=== PATIENT | female | born 1990 | race African-American/Black ===

== ENCOUNTER 2018-11-27 11:46 | Inpatient (IN) | payer MEDICARE ==
[~2018-11-27] VITALS: Ht 175.3 cm; Wt 68.0 kg
[2018-11-27 11:58] VITALS: BP 154/75
--- NOTE | 2018-11-27 12:00 | NUR ---
ED Nurse Note: pt brouhg in by friend to the ED, c/o abd pain and vomiting . patient stated that she has insulin pump but it got . BS at the bedside is 332. friend at beside
[2018-11-27] MEDS ORDERED: Morphine Sulfate 4mg/ml Inj (IV/IM USE ONLY) IVP ONE (12:30)
[2018-11-27 12:43] LABS: HEMOGLOBIN 12.5 G/DL (12.0-16.0); MEAN CORPUSCULAR VOLUME 75 FL (80-99); PLATELET COUNT 193 K/UL (150-450); RED BLOOD COUNT 5.48 M/UL (4.20-5.40); RED CELL DISTRIBUTION WIDTH 13.1 % (11.6-14.8); WHITE BLOOD COUNT 13.4 K/UL (4.8-10.8)
[2018-11-27 12:56] LABS: ANION GAP 18 mmol/L (5-15); BLOOD UREA NITROGEN 21 mg/dL (7-18); CALCIUM 9.7 MG/DL (8.5-10.1); CARBON DIOXIDE 19 MMOL/L (21-32); CHLORIDE 100 MMOL/L (98-107); POTASSIUM 4.4 MMOL/L (3.5-5.1); SODIUM 137 MMOL/L (136-145)
[2018-11-27 13:00] LABS: ALANINE AMINOTRANSFERASE 30 U/L (12-78); ALBUMIN 4.1 G/DL (3.4-5.0); ALBUMIN/GLOBULIN RATIO 1.1 (1.0-2.7); ALKALINE PHOSPHATASE 90 U/L (46-116); ASPARTATE AMINO TRANSFERASE 40 U/L (15-37); BILIRUBIN,TOTAL 0.6 MG/DL (0.2-1.0)
[2018-11-27] MEDS ORDERED: Insulin Human Regular 100units/ml 3ml IV ONE (14:15)
[2018-11-27] MEDS ORDERED: Pantoprazole Inj IVP ONE (14:15)
[2018-11-27] MEDS ORDERED: Isovue-300 100ml vial INJ PRN (14:15)
[2018-11-27 15:29] LABS: APPEARANCE,URINE SLIGHTLY CLOUDY; BILIRUBIN, URINE NEGATIVE (NEGATIVE); COLOR,URINE PALE YELLOW; GLUCOSE, URINE (UA) 4+ (NEGATIVE); KETONES,URINE 4+ (NEGATIVE); LEUKOCYTE ESTERASE ,URINE NEGATIVE (NEGATIVE); NITRITE,URINE NEGATIVE (NEGATIVE); PH,URINE 5 (4.5-8.0); PROTEIN,URINE NEGATIVE (NEGATIVE); UROBILINOGEN,URINE NORMAL MG/DL (0.0-1.0)
--- NOTE | 2018-11-27 15:29 | Emergency Room Report ---
History of Present Illness General Chief Complaint: Abdominal Pain Source: Patient Present Illness HPI 28-year-old female presents ED for evaluation. Complaining of abdominal pain and vomiting since this morning. States she is a diabetic and ran out of her insulin. Moved here recently from ER does not have a PMD here. Pain is sharp, 7 out of 10, nonradiating. Notes blood in her vomit. Denies any diarrhea. Denies any fevers or chills. Denies chest pain or shortness of breath. No other aggravating relieving factors. Denies any other associated symptoms Allergies: Coded Allergies: No Known Allergies (Unverified , 11/27/18) Patient History Past Medical History: DM Past Surgical History: none Pertinent Family History: none Social History: Denies: smoking, alcohol use, drug use Now: No Immunizations: UTD Reviewed Nursing Documentation: PMH: Agreed; PSxH: Agreed Nursing Documentation-PMH Hx Diabetes: Yes Review of Systems All Other Systems: negative except mentioned in HPI Physical Exam Vital Signs Date Time Temp Pulse Resp B/P (MAP) Pulse Ox O2 Delivery O2 Flow Rate FiO2 11/27/18 11:53 97.0 75 18 154/75 95 Room Air Sp02 EP Interpretation: reviewed, normal General Appearance: alert, GCS 15, non-toxic, mild distress Head: normocephalic, atraumatic Eyes: bilateral eye normal inspection, bilateral eye PERRL ENT: hearing grossly normal, normal pharynx, no angioedema, normal voice Neck: full range of motion, supple/symm/no masses Respiratory: chest non-tender, lungs clear, normal breath sounds, speaking full sentences Cardiovascular #1: regular rate, rhythm, no edema Cardiovascular #2: 2+ carotid (R), 2+ carotid (L), 2+ radial (R), 2+ radial (L) , 2+ dorsalis pedis (R), 2+ dorsalis pedis (L) Gastrointestinal: normal bowel sounds, soft, non-distended, no guarding, no rebound, tenderness Rectal: deferred Genitourinary: normal inspection, no CVA tenderness Musculoskeletal: back normal, gait/station normal, normal range of motion, non- tender Neurologic: alert, oriented x3, responsive, motor strength/tone normal, sensory intact, speech normal Psychiatric: judgement/insight normal, memory normal, mood/affect normal, no suicidal/homicidal ideation Reflexes: 3+ bicep (R), 3+ bicep (L), 3+ tricep (R), 3+ tricep (L), 3+ knee (R) , 3+ knee (L) Skin: normal color, no rash, warm/dry, well hydrated Lymphatic: no adenopathy Medical Decision Making Diagnostic Impression: Primary Impression: Hyperglycemia Additional Impressions: Intractable vomiting Qualified Codes: R11.2 - Nausea with vomiting, unspecified Pyelonephritis ER Course Hospital Course 28 yo F presents with abd pain, vomiting, glucose high Differential diagnoses include: ETOH/drug ingestion, sepsis, DKA Clinical course Patient placed on stretcher. On manager cardiac. After initial history and physical I ordered labs, IV fluids, urine and chest Xray Labs-glucose greater than 300, anion gap mildly elevated, bicarbonate ok, UA grossly positive, ketones positive ABGs does not show acidosis. Unlikely DKA Patient continues to have pain. CT ordered CT shows heterogeneous in the in the right kidney distended bladder suggestive of pyelonephritis Insulin given, IV fluids given, antibiotics given Case discussed with Dr. Isbell and he agreed to accept the patient to his service for further care and support i. I feel this is a highly complex case requiring extensive working including EKG/Rhythm strip, Xray/CT/US, Blood/urine lab work, repeat exams while in ED, and administration of strong opiates/narcotics for pain control, admission to hospital or close patient follow up. diagnosis - hyperglycemia, intractable vomiting, pyelonephritis admitted to floor in serious condition Labs Test 11/27/18 12:07 11/27/18 12:40 11/27/18 13:04 11/27/18 15:17 White Blood Count 13.4 K/UL (4.8-10.8) Red Blood Count 5.48 M/UL (4.20-5.40) Hemoglobin 12.5 G/DL (12.0-16.0) Hematocrit 41.0 % (37.0-47.0) Mean Corpuscular Volume 75 FL (80-99) Mean Corpuscular Hemoglobin 22.8 PG (27.0-31.0) Mean Corpuscular Hemoglobin Concent 30.5 G/DL (32.0-36.0) Red Cell Distribution Width 13.1 % (11.6-14.8) Platelet Count 193 K/UL (150-450) Mean Platelet Volume 9.4 FL (6.5-10.1) Neutrophils (%) (Auto) % (45.0-75.0) Lymphocytes (%) (Auto) % (20.0-45.0) Monocytes (%) (Auto) % (1.0-10.0) Eosinophils (%) (Auto) % (0.0-3.0) Basophils (%) (Auto) % (0.0-2.0) Differential Total Cells Counted 100 Neutrophils % (Manual) 80 % (45-75) Lymphocytes % (Manual) 15 % (20-45) Monocytes % (Manual) 5 % (1-10) Eosinophils % (Manual) 0 % (0-3) Basophils % (Manual) 0 % (0-2) Band Neutrophils 0 % (0-8) Platelet Estimate Adequate Platelet Morphology Normal Hypochromasia 1+ Microcytosis 1+ Sodium Level 137 MMOL/L (136-145) Potassium Level 4.4 MMOL/L (3.5-5.1) Chloride Level 100 MMOL/L (98-107) Carbon Dioxide Level 19 MMOL/L (21-32) Anion Gap 18 mmol/L (5-15) Blood Urea Nitrogen 21 mg/dL (7-18) Creatinine 1.0 MG/DL (0.55-1.30) Estimat Glomerular Filtration Rate > 60 mL/min (>60) Glucose Level 360 MG/DL (74-106) Calcium Level 9.7 MG/DL (8.5-10.1) Magnesium Level 1.8 MG/DL (1.8-2.4) Total Bilirubin 0.6 MG/DL (0.2-1.0) Aspartate Amino Transf (AST/SGOT) 40 U/L (15-37) Alanine Aminotransferase (ALT/SGPT) 30 U/L (12-78) Alkaline Phosphatase 90 U/L (46-116) Total Protein 7.7 G/DL (6.4-8.2) Albumin 4.1 G/DL (3.4-5.0) Globulin 3.6 g/dL Albumin/Globulin Ratio 1.1 (1.0-2.7) Lipase 83 U/L (73-393) Human Chorionic Gonadotropin, Quant < 1 mIU/mL (1-6) Acetone Level Positive-small (NEGATIVE) Arterial Blood pH 7.306 (7.350-7.450) Arterial Blood Partial Pressure CO2 37.1 mmHg (35.0-45.0) Arterial Blood Partial Pressure O2 97.0 mmHg (75.0-100.0) Arterial Blood HCO3 18.1 mmol/L (22.0-26.0) Arterial Blood Oxygen Saturation 96.6 % (95-100) Arterial Blood Base Excess -7.5 (-2-2) Marcel Test Positive CT/MRI/US Diagnostic Results CT/MRI/US Diagnostic Results : Imaging Test Ordered: CT A/P Impression Equivocally slightly relatively decreased and heterogeneous opacification of the right kidney, if real could indicate pyelonephritis. Correlate urinalysis findings Distended bladder. There is a single intraluminal gas bubble. This could indicate recent instrumentation. However, if there is no history of such, is a possibility of emphysematous cystitis should be considered Last Vital Signs Date Time Temp Pulse Resp B/P (MAP) Pulse Ox O2 Delivery O2 Flow Rate FiO2 11/27/18 12:59 97.0 11/27/18 12:21 107 18 Room Air 11/27/18 11:58 154/75 95 Status: improved Disposition: ADMITTED INPATIENT Condition: Serious Molina Curtis MD Nov 27, 2018 15:29
--- NOTE | 2018-11-27 15:48 | Diagnostic Imaging Report ---
Clinical Indication: Abdominal pain and vomiting Technique: No oral contrast utilized, per emergency room physician request IV administration nonionic contrast. Venous phase spiral acquisition obtained through the abdomen and pelvis. Multiplanar reconstructions were generated. Total dose length product 803.37 mGycm. CTDIvol(s) 12.54,16.82 mGy. Dose reduction achieved using automated exposure control Comparison: none Findings: Lack of enteric contrast limits assessment of the GI tract. The appendix is not definitely identified, but no findings to suggest acute appendicitis are evident. The rectum is mildly distended with stool. No small bowel distention. No free or loculated intraperitoneal gas or fluid is evident. The duodenum, stomach, and distal esophagus are unremarkable. The liver, gallbladder, bile ducts, pancreas, spleen, adrenals and left kidney are unremarkable. There is equivocally slightly relatively decreased and slightly heterogeneous opacification of the right kidney. Subcentimeter low-attenuation lesion in the upper pole of the right kidney is noted. No renal or ureteral calculi, hydronephrosis, or hydroureter demonstrated. The bladder is considerably distended. A single gas bubble is seen within the bladder lumen. However, there is no wall thickening demonstrated. No pelvic mass or adenopathy. The uterus demonstrates a intrauterine device The included lung bases demonstrate on the highest cut a 4 mm nodule in the right lower lobe, possibly adjacent to the major fissure. The bones are unremarkable. Impression: Equivocally slightly relatively decreased and heterogeneous opacification of the right kidney, if real could indicate pyelonephritis. Correlate urinalysis findings Distended bladder. There is a single intraluminal gas bubble. This could indicate recent instrumentation. However, if there is no history of such, is a possibility of emphysematous cystitis should be considered No other acute abnormality Intrauterine device 4 mm right lower lobe lung nodule incompletely included. No further follow-up necessary if there is no significant smoking history or other risk factors for lung carcinoma. Recommend 6-12 month interim follow-up exam if there are significant risk factors Subcentimeter low-attenuation right renal lesion, too small to characterize, most likely benign simple cyst. No further follow-up necessary The CT scanner at [facility] is accredited by the [employer] and the scans are performed using protocols designed to limit radiation exposure to as low as reasonably achievable to attain images of sufficient resolution adequate for diagnostic evaluation.
[2018-11-27] MEDS ORDERED: cefTRIAXone 1 GM in NS 55 ML IVPB ONE (16:00)
--- NOTE | 2018-11-27 16:08 | NUR ---
ED Nurse Note: patient got CT at 1437, and indwelling wright was placed in 1508
--- NOTE | 2018-11-27 17:09 | NUR ---
ED Nurse Note: report given to Demetria BARRERA. friend at bedside
[2018-11-27 17:30] VITALS: BP 141/86
--- NOTE | 2018-11-27 17:30 | NUR ---
NURSE NOTES: ADMITTED A 28 YR OLD FEMALE WITH DX OF HYPERGLYCEMIA,INTRACTABLE VOMITING. AWAKE/ALERT. ADM CARE DONE SEE ASSESSMENT.
[2018-11-27] MEDS: NovoLOG Insulin Flexpen SUBQ SCH ×2 (18:52→21:07)
[2018-11-27] MEDS ORDERED: NOVOLOG100 UNIT/5 (19:00)
--- NOTE | 2018-11-27 19:00 | NUR ---
NURSE NOTES: RESTING IN BED. IN NO DISTRESS.
--- NOTE | 2018-11-27 19:35 | NUR ---
HAND-OFF: Report given to Rachael thorne.
[2018-11-27 20:00] VITALS: BP 138/82
--- NOTE | 2018-11-27 20:00 | NUR ---
NURSE NOTES: Report received from Sabas RN. Patient is observed in bed, awake, alert, oriented, and able to make needs known. IV site is asymptomatic, patent, and intact. IVF is running at a prescribed rate. Patient denies pain at this time. Bed is in lowest position with side rails up x2 and brakes are engaged. Encouraged patient to use call light when in need of assistance, patient verbalized understanding.
--- NOTE | 2018-11-27 21:45 | History and Physical Report ---
DATE OF ADMISSION: 11/27/2018 HISTORY: This is a young 28-year-old female, who came with hyperglycemia, intractable vomiting, and nausea and vomiting. The patient denies any fever or chills. PAST MEDICAL HISTORY: Diabetes. MEDICATIONS: See the list. ALLERGIES: NKA. FAMILY HISTORY: Noncontributory. SOCIAL HISTORY: The patient lives with the family. Denies any illegal drugs. PHYSICAL EXAMINATION: VITAL SIGNS: Her current blood pressure 154/75, pulse 107, respirations 18, and temp is 97. SKIN: Good skin turgor. Looks diaphoretic. HEENT: NAD. CHEST: Bilaterally few crackles. CARDIOVASCULAR: Regular rhythm. No gallop. No murmur. ABDOMEN: Soft. Mild tenderness. EXTREMITIES: CCE. NEUROLOGICAL: No focal deficit. LABORATORY EXAMINATION: White counts are 13,000 , hemoglobin 13, hematocrit 42, and platelets are 193,000. Chemistry panel, sodium 137, potassium 4.4, BUN 21, creatinine 1, and glucose 360. Her test is negative. Her urine is showing 2 to 4 rbc, moderate squamous cells, 4+ glucose, 4+ ketone, and blood 1+. ASSESSMENT AND PLAN: 1. Diabetes, poorly controlled. 2. Hypertension. 3. Hematuria. PLAN: 1. We will admit on medical floor. 2. Restart intravenous fluids. 3. Zofran. 4. Consider GI consult and also add lipase and-sliding scale high dose and Accu-Chek daily before meals and diabetic education. Jesus Isbell M.D. DR: IGNACIO JOB#: [id number] CC:
[2018-11-28] VITALS: BP 132/77
[2018-11-28] MEDS: Morphine Sulfate 2mg/ml Inj IVP PRN ×2 (01:56→22:00)
--- NOTE | 2018-11-28 02:15 | NUR ---
NURSE NOTES: Contacted Dr. Isbell regarding patient's itnractable vomiting with coffee ground-like emesis. Rechecked patient's blood sugar: 404 mg/dL. New orders noted and will be carried out.
[2018-11-28] MEDS: Metoclopramide 10mg/2ml Inj IVP PRN ×3 (02:39→13:58)
--- NOTE | 2018-11-28 03:30 | NUR ---
NURSE NOTES: Patient is asleep but arousable by voice. Denies pain at this time. Denies n/v. Will continue to monitor.
[2018-11-28 04:21] VITALS: BP 95/47
[2018-11-28] MEDS: NovoLOG Insulin Flexpen SUBQ SCH ×4 (05:45→22:08)
[2018-11-28 07:31] LABS: HEMATOCRIT 36.6 % (37.0-47.0); HEMOGLOBIN 11.3 G/DL (12.0-16.0); MEAN CORPUSCULAR VOLUME 76 FL (80-99); PLATELET COUNT 169 K/UL (150-450); WHITE BLOOD COUNT 16.6 K/UL (4.8-10.8)
--- NOTE | 2018-11-28 07:32 | NUR ---
NURSE NOTES: ASLEEP. IN NO APPARENT DISTRESS.
[2018-11-28 07:42] LABS: ANION GAP 23 mmol/L (5-15); BLOOD UREA NITROGEN 30 mg/dL (7-18); CALCIUM 8.5 MG/DL (8.5-10.1); CARBON DIOXIDE 12 MMOL/L (21-32); CHLORIDE 100 MMOL/L (98-107); CREATININE 1.4 MG/DL (0.55-1.30); POTASSIUM 4.5 MMOL/L (3.5-5.1); SODIUM 135 MMOL/L (136-145)
--- NOTE | 2018-11-28 07:45 | NUR ---
HAND-OFF: Report given to Sabas RN. Patient is observed in bed, eating breakfast. Endorsed plan of care.
[2018-11-28 08:00] VITALS: BP 134/71
[2018-11-28] MEDS ORDERED: cefTRIAXone 1 GM in D5W 55 ML IVPB SCH (09:00)
[2018-11-28 12:00] VITALS: BP 115/60
--- NOTE | 2018-11-28 12:43 | GI Initial Consult Note ---
History of Present Illness General Date patient seen: Nov 28, 2018 Time patient seen: 14:42 Reason for Hospitalization: Abdominal Pain Referring physician: MARICRUZ RODAS Reason for Consultation: NAUSEA VOMITING Present Illness HPI 28-year-old female presents ED for evaluation. Complaining of abdominal pain and vomiting since this morning. States she is a diabetic and ran out of her insulin. Moved here recently from ER does not have a PMD here. Pain is sharp, 7 out of 10, nonradiating. Notes blood in her vomit. Denies any diarrhea. Denies any fevers or chills. Denies chest pain or shortness of breath. No other aggravating relieving factors. Denies any other associated symptoms. GI consulted for persistent nausea and vomiting. ROS limited, the patient felt extremely nauseated and unable to answer any questions at the time. Sister at bedside. According to the patient, her initial onset began yesterday where the patient experienced persistent nausea and vomiting. The patient denied any hematemesis, however felt that her emesis reported her emesis as being brown to dark brown. The patient has a history of diabetes, noted with implanted insulin pump. She presents today with leukocytosis, microcytic anemia and elevated HG A1c. Abdominal pelvis CT was performed noted with a mild mildly distended rectum with stool, see full report. The patient has no history of endoscopic or colonoscopy. Home Meds Reported Medications Insulin Aspart (NOVOLOG) 100 Unit/1 Ml Vial, PRN for blood sugar 11/27/18 Med list reviewed/reconciled: Yes Allergies: Coded Allergies: No Known Allergies (Unverified , 11/27/18) Patient History Limited by: medical condition History Provided By: Patient, Medical Record PMH Narrative Past Medical History: DM Past Surgical History: none Pertinent Family History: none Social History: Denies: smoking, alcohol use, drug use Now: No Immunizations: UTD Reviewed Nursing Documentation: PMH: Agreed; PSxH: Agreed Nursing Documentation-PMH Hx Diabetes: Yes Pertinent Family History: none Social History: Denies: smoking, alcohol use, drug use, other Review of Systems All Other Systems: negative except mentioned in HPI Physical Exam Vital Signs Date Time Temp Pulse Resp B/P (MAP) Pulse Ox O2 Delivery O2 Flow Rate FiO2 11/27/18 11:53 97.0 75 18 154/75 95 Room Air Sp02 EP Interpretation: reviewed, normal Labs Laboratory Tests Test 11/27/18 13:04 11/27/18 15:17 11/28/18 06:22 Arterial Blood pH 7.306 (7.350-7.450) Arterial Blood Partial Pressure CO2 37.1 mmHg (35.0-45.0) Arterial Blood Partial Pressure O2 97.0 mmHg (75.0-100.0) Arterial Blood HCO3 18.1 mmol/L (22.0-26.0) L Arterial Blood Oxygen Saturation 96.6 % (95-100) Arterial Blood Base Excess -7.5 (-2-2) L Marcel Test Positive Urine Color Pale yellow Urine Appearance Slightly cloudy Urine pH 5 (4.5-8.0) Urine Specific [place] 1.020 (1.005-1.035) Urine Protein Negative (NEGATIVE) Urine Glucose (UA) 4+ (NEGATIVE) H Urine Ketones 4+ (NEGATIVE) H Urine Blood 1+ (NEGATIVE) H Urine Nitrite Negative (NEGATIVE) Urine Bilirubin Negative (NEGATIVE) Urine Urobilinogen Normal MG/DL (0.0-1.0) Urine Leukocyte Esterase Negative (NEGATIVE) Urine RBC 2-4 /HPF (0 - 2) H Urine WBC 0-2 /HPF (0 - 2) Urine Squamous Epithelial Cells Moderate /LPF (NONE/OCC) H Urine Bacteria Few /HPF (NONE) Urine HCG, Qualitative Negative (NEGATIVE) White Blood Count 16.6 K/UL (4.8-10.8) H Red Blood Count 4.80 M/UL (4.20-5.40) Hemoglobin 11.3 G/DL (12.0-16.0) L Hematocrit 36.6 % (37.0-47.0) L Mean Corpuscular Volume 76 FL (80-99) L Mean Corpuscular Hemoglobin 23.5 PG (27.0-31.0) L Mean Corpuscular Hemoglobin Concent 30.7 G/DL (32.0-36.0) L Red Cell Distribution Width 14.0 % (11.6-14.8) Platelet Count 169 K/UL (150-450) Mean Platelet Volume 9.7 FL (6.5-10.1) Neutrophils (%) (Auto) % (45.0-75.0) Lymphocytes (%) (Auto) % (20.0-45.0) Monocytes (%) (Auto) % (1.0-10.0) Eosinophils (%) (Auto) % (0.0-3.0) Basophils (%) (Auto) % (0.0-2.0) Differential Total Cells Counted 100 Neutrophils % (Manual) 92 % (45-75) H Lymphocytes % (Manual) 6 % (20-45) L Monocytes % (Manual) 2 % (1-10) Eosinophils % (Manual) 0 % (0-3) Basophils % (Manual) 0 % (0-2) Band Neutrophils 0 % (0-8) Platelet Estimate Adequate Platelet Morphology Normal Hypochromasia 1+ Anisocytosis 1+ Microcytosis 1+ Sodium Level 135 MMOL/L (136-145) L Potassium Level 4.5 MMOL/L (3.5-5.1) Chloride Level 100 MMOL/L (98-107) Carbon Dioxide Level 12 MMOL/L (21-32) L Anion Gap 23 mmol/L (5-15) H Blood Urea Nitrogen 30 mg/dL (7-18) H Creatinine 1.4 MG/DL (0.55-1.30) H Estimat Glomerular Filtration Rate 55.1 mL/min (>60) Glucose Level 454 MG/DL (74-106) H Hemoglobin A1c 11.0 % (4.3-6.0) H Calcium Level 8.5 MG/DL (8.5-10.1) General Appearance: well appearing, no apparent distress, alert Head: normocephalic EENT: PERRL/EOMI, normal ENT inspection Neck: supple Respiratory: normal breath sounds, no respiratory distress Cardiovascular: normal rate Gastrointestinal: normal inspection, non tender, soft, normal bowel sounds, non -distended Rectal: deferred Genitourinary: no CVA tenderness Musculoskeletal: normal inspection, back normal Neurologic: normal inspection, alert, oriented x3, responsive Psychiatric: normal inspection, judgement/insight normal, memory normal Skin: normal inspection, normal color, no rash, warm/dry, palpation normal, well hydrated Lymphatic: normal inspection, no adenopathy Current Medications Current Medications Medications (Trade) Dose Ordered Sig/Anurag Route PRN Reason Start Time Stop Time Status Last Admin Dose Admin Acetaminophen (Tylenol) 650 mg Q6H PRN ORAL Mild Pain/Temp > 100.5 11/27/18 18:00 12/27/18 17:59 Ceftriaxone Sodium 1 gm/ Dextrose 55 ml @ 110 mls/hr DAILY IVPB 11/28/18 09:00 12/05/18 08:59 11/28/18 08:32 Dextrose (Dextrose 50%) 25 ml Q30M PRN IV Hypoglycemia 11/28/18 02:30 12/28/18 02:29 Dextrose (Dextrose 50%) 50 ml Q30M PRN IV Hypoglycemia 11/28/18 02:30 12/28/18 02:29 Insulin Aspart (NovoLOG) BEFORE MEALS AND HS SUBQ 11/28/18 06:30 12/28/18 06:29 11/28/18 11:42 Iopamidol (Isovue-300 100ml) 100 ml NOW PRN INJ Radiology Procedure 11/27/18 14:15 11/29/18 14:14 Metoclopramide HCl (Reglan) 10 mg Q6H PRN IVP Nausea & Vomiting 11/28/18 02:30 12/28/18 02:29 11/28/18 08:26 Morphine Sulfate (Morphine Sulfate) 1 mg Q4H PRN IVP Severe Pain (Pain Scale 7-10) 11/27/18 18:00 12/04/18 17:59 11/28/18 01:56 Ondansetron HCl (Zofran) 4 mg Q4H PRN IVP Nausea & Vomiting 11/27/18 18:00 12/27/18 17:59 11/28/18 10:40 Sodium Chloride 1,000 ml @ 100 mls/hr Q10H IV 11/27/18 18:00 12/27/18 17:59 11/28/18 04:23 GI: Plan Problems: (1) Anemia (2) Cyclic vomiting syndrome (3) Marijuana use (4) Gastroparesis (5) Intractable vomiting (6) Hyperglycemia Plan Abdominal pelvis CT reviewed >> rectum filled with stool U tox positive for marijuana Maintain n.p.o. plus IV fluids, advance diet as tolerated May benefit from a endocrine and infectious disease consultation Continue Reglan [id number] Zofran as needed Electrolyte correction DM management anemia work up OB stool r/o GI bleed monitor H&H, prn transfusions bowel regime ppi fu labs We will consider endoscopy if patient has persistent vomiting and or drop in hemoglobin Discussed with Dr. Wagner. Thank you for this patient referral, we will follow. Farideh Abel NP Nov 28, 2018 12:43
--- NOTE | 2018-11-28 13:30 | NUR ---
NURSE NOTES: WITH FREQUENT VOMITING LARGE AMOUNT OF GASTRIC LIQUID.NPO EXCEPT ICE CHIPS MAINTAINED MEDICATED WITH REGLAN 19 MG IV ORDERED. STARTED ON PROTONIX IV ORDERED. TEMP 98.6. WILL CONTINUE TO MONITOR PT.
--- NOTE | 2018-11-28 14:00 | NUR ---
NURSE NOTES: ASLEEP. NO NAUSEA /VOMITING AT THIS TIME.
[2018-11-28] MEDS ORDERED: Pantoprazole Inj IVP SCH ×2 (14:15→21:00)
[2018-11-28 16:00] VITALS: BP 94/49
--- NOTE | 2018-11-28 16:28 | NUR ---
INSURANCE CLINICALS HAVE BEEN FAXED TO: [facility]:AMIE Jacobs#: [phone]
--- NOTE | 2018-11-28 19:00 | NUR ---
NURSE NOTES RESTING. IN NO ACUTE DISTRESS.
--- NOTE | 2018-11-28 19:17 | NUR ---
HAND-OFF: Report given to James MANDUJANO LVN.
--- NOTE | 2018-11-28 19:17 | NUR ---
NURSE NOTES: Patient received from Demetria Mendes patient denies any pain at this time . no sob/ no n/v noted at this time . RH g# 22 NS @ 100CC/HR infusing well . patient Wright catheter draining well to yellow urine 100 cc. patient requested wright cath removed .still awaiting Tremayne Fry to call back . call light within reach .bed in low position at all times . will continue to monitor patient
--- NOTE | 2018-11-28 19:19 | NUR ---
NURSE NOTES: DR RODAS CALLED RE : PT REQUESTING TO HAVE WILLIAMSON REMOVED. LEFT MESSAGE TO RETURN CALL.
[2018-11-28 20:00] VITALS: BP 123/52
--- NOTE | 2018-11-28 20:30 | NUR ---
NURSE NOTES: Dr Murray called with new orders . change Novolog Insulin q 4 hrs , Levemir 18 units subcutaneous x1 now and labs in am CMP , MAG and PHOS .
[2018-11-28] MEDS ORDERED: Levemir Flexpen SUBQ ONE (21:30)
[2018-11-28] MEDS: Metoclopramide 10mg/2ml Inj IVP SCH (22:05)
[2018-11-29] VITALS: BP 116/60
[2018-11-29] MEDS: NovoLOG Insulin Flexpen SUBQ SCH ×3 (02:30→06:27)
--- NOTE | 2018-11-29 02:30 | Progress Note ---
DATE: 11/28/2018 SUBJECTIVE: This is a young 28-year-old female who is still complaining a lot of nausea, vomiting, abdominal pain, and unable to tolerate food. The patient is also vomiting a black coffee-ground emesis. Family is on bedside. Sister discussed with the family as well with Dr. Wagner via on the phone. The patient was given Reglan and Zofran, slightly better. OBJECTIVE: VITAL SIGNS: Blood pressure 94/49, pulse 120, and temperature 99.8. SKIN: Looks pale. HEENT: NAD. CHEST: Bilaterally clear. CARDIOVASCULAR: Regular rhythm. No gallop. No murmur. Tachycardia. ABDOMEN: Soft. Mild tenderness. EXTREMITIES: CCE. NEUROLOGIC: Generalized weakness. LABORATORY DATA: White counts are 16,000, hemoglobin is 11, hematocrit is 36, and platelets are 169. Chemistry panel, sodium 135, potassium 4.5, BUN 30, creatinine 1.4, glucose 454, and A1c was 11. Toxicology screen is positive for marijuana. ASSESSMENT: 1. Recurrent nausea and vomiting. 2. Hyperglycemia. 3. Generalized weakness. PLAN: Discussed with Dr. Wagner. We will continue IV fluid and continue NPO. CT of abdomen shows no acute cholecystitis. We will currently continue NPO, continue Reglan and Zofran, and continue antibiotics for UTI. Consider ID consult and endocrine consult . Jesus Isbell M.D. DR: JACQUELIN JOB#: [id number] CC:
--- NOTE | 2018-11-29 03:39 | NUR ---
NURSE NOTES: Patient blood sugar 362 at 02:30 am Novolog insulin 7 units subcutaneous was given . patient is NPO
[2018-11-29] MEDS: Metoclopramide 10mg/2ml Inj IVP SCH (05:05)
[2018-11-29] MEDS: Morphine Sulfate 2mg/ml Inj IVP PRN (05:05)
--- NOTE | 2018-11-29 05:50 | NUR ---
NURSE NOTES: After 0500 this morning while I was administering to the patient her morphine for pain and scheduled Reglan, patient verbalized to me that she wants to leave the hospital at around 0600 or 0630 this morning because she doesn't think that she is getting any better. She voiced her frustration that she has been here too many days and that she has not spoken to any physician aside from Dr Murray who she said spoke with her last night. I explained to the patient the benefits of staying in the hospital and continuing to receive treatment. Explained to her that medication therapies take time. She told me that she thinks nothing is working and that she is not receiving enough fluids. Explained to the patient all the risks of leaving the hospital including worsening of illness/condition and . Patient states she would like to sign out against medical advice and leave this morning. She told me to please prepare any necessary paperworks for her to sign. She would like to seek treatment at another hospital. Endorsed to Negrita JACOBS and she will be notifying MD of this matter.
[2018-11-29 06:00] VITALS: BP 124/58
--- NOTE | 2018-11-29 06:20 | NUR ---
NURSE NOTES:Patient BS 433 . Novolog insulin 16 units sub cutaneous given . called DR. Murray notified and aware. no new orders and Jennie Nicole notified. will continue to monitor
--- NOTE | 2018-11-29 07:15 | NUR ---
NURSE NOTES Patient want to leave hospital against medical advice . patient explained the risk and benefits .''patient stating Im not feeling better . DR. Murray notified and aware . and stating if patient will not signing AMA Call me back . patient will be transferred will be to ICU . Armband removed and wright catheter per hospital protocol . patient personal belongings with the family Patient ended up signing AMA AND Left safely with family in private car.endorsed to Cristina Mendes to follow up with Dr. Isbell. Jennie Nicole Notified and aware.
[2018-11-29 07:46] LABS: HEMATOCRIT 37.8 % (37.0-47.0); HEMOGLOBIN 11.4 G/DL (12.0-16.0); MEAN CORPUSCULAR VOLUME 78 FL (80-99); PLATELET COUNT 181 K/UL (150-450); RED BLOOD COUNT 4.86 M/UL (4.20-5.40); RED CELL DISTRIBUTION WIDTH 13.9 % (11.6-14.8); WHITE BLOOD COUNT 18.9 K/UL (4.8-10.8)
[2018-11-29 07:55] LABS: PHOSPHORUS 4.8 MG/DL (2.5-4.9)
[2018-11-29 07:56] LABS: INR 1.1 (0.9-1.1)
[2018-11-29 08:16] LABS: ALANINE AMINOTRANSFERASE 33 U/L (12-78); ALBUMIN 3.5 G/DL (3.4-5.0); ALBUMIN/GLOBULIN RATIO 1.1 (1.0-2.7); ALKALINE PHOSPHATASE 74 U/L (46-116); ANION GAP 25 mmol/L (5-15); ASPARTATE AMINO TRANSFERASE 25 U/L (15-37); BILIRUBIN,TOTAL 0.5 MG/DL (0.2-1.0); BLOOD UREA NITROGEN 34 mg/dL (7-18); CALCIUM 8.2 MG/DL (8.5-10.1); CARBON DIOXIDE 8 MMOL/L (21-32); CHLORIDE 97 MMOL/L (98-107); CREATININE 1.6 MG/DL (0.55-1.30); FERRITIN 150 NG/ML (8-388); POTASSIUM 5.7 MMOL/L (3.5-5.1); SODIUM 130 MMOL/L (136-145)
[2018-11-29 10:24] LABS: % IRON SATURATION 25 % (15-50); IRON 68 ug/dL (50-175); TOTAL IRON BINDING CAPACITY 270 ug/dL (250-450)
--- NOTE | 2018-11-30 10:18 | Discharge Summary ---
Discharge Summary Discharge Summary _ DATE OF ADMISSION: 11/27/2018 DATE OF DISCHARGE: 11/29/2018 ADMITTING MD: Dr. Jesus Isbell CONSULTANTS: Dr. John Wagner [facility] COURSE: Patient is a 28-year-old female, who presented to ED complaining of abdominal pain and vomiting since the morning. Patient is diabetic and ran out of her insulin. She moved here recently. She did not have any PMD. She complained of abdominal pain, described to be sharp, 7 out of 10 in intensity and nonradiating. She noted blood in her vomitus. She denied any diarrhea. Denied any fever or chills. Denied chest pain or shortness of breath. On evaluation at the ED, glucose was 360. Anion gap was mildly elevated. Urinalysis was positive for 4+ ketones. ABG was negative for acidosis. Acetone positive. She continued to have abdominal pain. CT of the abdomen with contrast showed possible pyelonephritis. Lipase was normal. HCG was negative. Urinalysis with 0-2 WBC, 2-4 RBC, negative leukocyte esterase, negative nitrite. She was given IV fluids. She was started on insulin. She given symptomatic treatment with Zofran and morphine. She was started on on ceftriaxone. She was admitted for evaluation of hyperglycemia. She was admitted to the medical floor. She was given IV fluids. GI was consulted. She was placed on n.p.o., advanced as tolerated. She was placed on [id number] Reglan. She was given Zofran as needed. CT of the abdomen showed rectum filled with stool. Urine toxicology was positive for THC. She was given proton pump inhibitors. Blood glucose was monitored. Hemoglobin A1c 11. She was placed on NovoLog sliding scale. Blood glucose was elevated. [employer] Technician was consulted. Levemir 18 units subcu was given. Patient was planned for transfer to ICU, however, patient ended up signing AMA and left with family. FINAL DIAGNOSES: Diabetes, out of control Hypertension Hematuria Recurrent nausea and vomiting Hyperglycemia Generalized weakness Anemia Cyclic vomiting syndrome Marijuana use Gastroparesis DISPOSITION: Patient left against medical advise. I have been assigned to dictate discharge summary on this account, and I was not involved in the patient's management. Heather Zhao NP Nov 30, 2018 10:18
== END 2018-11-29 08:00 | disposition left against medical advice (07) | DRG 639 ==
LOC: EMR 15:30 → 3E 15:31 → EDBEDREQ 16:26
DX: E11.65 Type 2 diabetes mellitus with hyperglycemia (principal); I10 Essential (primary) hypertension; R31.9 Hematuria, unspecified; G43.A0 Cyclical vomiting, in migraine, not intractable; F12.90 Cannabis use, unspecified, uncomplicated; K31.84 Gastroparesis; Z79.4 Long term (current) use of insulin; Z91.14 Patient's other noncompliance with medication regimen
CPT/HCPCS: 36415; 36600; 74177; 80048; 80053; 80307; 81003; 81025; 82009; 82378; 82607; 82728; 82746; 82803; 82962; 83036; 83540; 83550; 83690; 83735; 84100; 84439; 84443; 84702; 85007; 85025; 85044; 85610; 85730; 87086; 96361; 96365; 96375; 96376; 99285; J1815; J2405; J2765; S5561